=== PATIENT | female | born 1985 | race Caucasian/White ===

== ENCOUNTER → 2019-09-19 | Outpatient (CLI) | payer BC ==
[~2019-09-19] MED LIST: IBUP-1022 PO; MIRA3350 PO; PRENTAB9 PO; TYLE325T5 PO
== END ==
LOC: M LABSMTC 11:39
PROVIDERS: ATTEND Family Medicine
DX: Z03.818 Encounter for observation for suspected exposure to other biological agents ruled out (principal); Z11.59 Encounter for screening for other viral diseases
CPT/HCPCS: C9803; U0003